=== PATIENT | male | born 1940 | race African-American/Black ===

== ENCOUNTER 2017-02-01 08:07 | Emergency (ER) | payer OTHER, MEDICARE ==
--- NOTE | 2017-02-01 08:52 | ER Document Report ---
ED GI/ - General Mode of Arrival: Ambulatory Information source: Patient TRAVEL OUTSIDE OF THE [place] IN LAST 30 DAYS: No <LUCRECIA CERRATO - Last Filed: 02/01/17 15:26> <ALEJO CARTER - Last Filed: 02/02/17 13:20> - General Chief Complaint: Urinary Problem Stated Complaint: URINARY PAIN Time Seen by Provider: 02/01/17 08:46 Notes: 76-year-old thin male hx prostate cancer complaining of suprapubic discomfort, penile dysuria, hesitancy, frequency and voiding small amounts since yesterday. He has intermittent hematuria since a bladder lesion was biopsied December 12 at [facility] surgery. He or his son do not know if it was malignant or not. He had a small bowel movement today. No fever or chills. No nausea vomiting or diarrhea. No sex in 1 year. No urethral discharge. Uncircumscised. ( LUCRECIA CERRATO) - Related Data Allergies/Adverse Reactions: No Known Allergies Allergy (Unverified 02/01/17 08:20) Home Medications: Current Home Medications Carvedilol [Carvedilol] 25 mg PO BID 02/01/17 [History] Finasteride [Finasteride] 5 mg PO DAILY 02/01/17 [History] Lisinopril [Lisinopril] 40 mg PO DAILY 02/01/17 [History] Tamsulosin HCl [Flomax] 0.4 mg PO DAILY 02/01/17 [History] Past Medical History - General Information source: Patient - Social History Smoking Status: Former Smoker Frequency of alcohol use: None Drug Abuse: None Lives with: Family Family History: Reviewed & Not Pertinent Renal/ Medical History: Denies: Hx Peritoneal Dialysis Malignancy Medical History: Reports Hx Prostate Cancer Surgical Hx: Negative - Immunizations Hx Diphtheria, Pertussis, Tetanus Vaccination: No - Unknown last tetanus <LUCRECIA CERRATO - Last Filed: 02/01/17 15:26> Review of Systems - Review of Systems Constitutional: No symptoms reported EENT: No symptoms reported Cardiovascular: No symptoms reported Respiratory: No symptoms reported Gastrointestinal: No symptoms reported Genitourinary: No symptoms reported Male Genitourinary: See HPI Musculoskeletal: No symptoms reported Skin: No symptoms reported Hematologic/Lymphatic: No symptoms reported Neurological/Psychological: No symptoms reported <LUCRECIA CERRATO - Last Filed: 02/01/17 15:26> Physical Exam - Vital signs Interpretation: Normal - General General appearance: Appears well, Alert In distress: None - HEENT Head: Normocephalic, Atraumatic Eyes: Normal Pupils: PERRL Neck: Supple. No: Lymphadenopathy - Respiratory Respiratory status: No respiratory distress Chest status: Nontender Breath sounds: Normal Chest palpation: Normal - Cardiovascular Rhythm: Regular Heart sounds: Normal auscultation Murmur: No - Abdominal Inspection: Normal Distension: No distension Bowel sounds: Normal Tenderness: Tender - Suprapubic Organomegaly: No organomegaly - Back Back: Normal, Nontender. No: CVA tenderness - Extremities General upper extremity: Normal inspection, Nontender, Normal color, Normal ROM , Normal temperature General lower extremity: Normal inspection, Nontender, Normal color, Normal ROM , Normal temperature, Normal weight bearing. No: Abdi's sign - Neurological Neuro grossly intact: Yes Cognition: Normal Orientation: AAOx4 [place] Coma Scale Eye Opening: Spontaneous [place] Coma Scale Verbal: Oriented [place] Coma Scale Motor: Obeys Commands [place] Coma Scale Total: 15 Speech: Normal Motor strength normal: LUE, RUE, LLE, RLE Sensory: Normal - Psychological Associated symptoms: Normal affect, Normal mood - Skin Skin Temperature: Warm Skin Moisture: Dry Skin Color: Normal Skin irregularity: negative: Rash <LUCRECIA CERRATO - Last Filed: 02/01/17 15:26> <ALEJO CARTER - Last Filed: 02/02/17 13:20> - Vital signs Vitals: Temp Pulse Resp BP Pulse Ox 97.7 F 70 18 126/55 H 100 02/01/17 08:17 02/01/17 08:17 02/01/17 08:17 02/01/17 08:17 02/01/17 08:17 - Genitourinary Notes: large left testicle (LUCRECIA CERRATO) Course - Laboratory Result Diagrams: 02/01/17 09:40 02/01/17 09:40 <LUCRECIA CERRATO - Last Filed: 02/01/17 15:26> - Laboratory Result Diagrams: 02/01/17 09:40 02/01/17 09:40 <ALEJO CARTER - Last Filed: 02/02/17 13:20> - Re-evaluation Re-evalutation: 02/01/17 11:14 Patient states that the burning has decreased since the Pyridium has kicked in. Pending bladder scan. Urinalysis shows greater than 182 RBCs and WBCs, negative nitrite, urine culture is pending. I have treated him with a dose of Cipro here in the emergency department. 02/01/17 11:35 bladder scan post void is 317 ml, sking pt if he wants a greene placed. 02/01/17 12:08 Pain is completely gone, is smiling and does not want a Greene. (LUCRECIA CERRATO) - Vital Signs Vital signs: Temp Pulse Resp BP Pulse Ox 97.7 F 75 18 124/78 96 02/01/17 08:17 02/01/17 12:32 02/01/17 12:32 02/01/17 12:32 02/01/17 12:32 - Laboratory Laboratory results interpreted by me: 02/01/17 02/01/17 02/01/17 08:50 09:40 09:40 RBC 3.23 L Hgb 10.3 L Hct 30.6 L RDW 14.4 H APTT 37.6 H Carbon Dioxide BUN Urine Protein 100 H Urine Blood LARGE H Ur Leukocyte Esterase LARGE H 02/01/17 09:40 RBC Hgb Hct RDW APTT Carbon Dioxide 21 L BUN 27 H Urine Protein Urine Blood Ur Leukocyte Esterase Discharge <LUCRECIA CERRATO - Last Filed: 02/01/17 15:26> <ALEJO CARTER - Last Filed: 02/02/17 13:20> - Discharge Clinical Impression: chronic, intermittent hematuria Urinary tract infection Qualifiers: Urinary tract infection type: acute cystitis Hematuria presence: with hematuria Qualified Code(s): N30.01 - Acute cystitis with hematuria Condition: Good Disposition: HOME, SELF-CARE Instructions: Ciprofloxacin ([facility]), Urinary Anesthetic Agent ([facility]), Urinary Tract Infection ([facility]) Additional Instructions: urine culture pending take the pyridium which takes the urinary pain away drink plenty of water daily Call your urologist on Friday to be seen this week line return to the emergency room if your symptoms worsen Please complete the patient satisfaction survey if you get one, and return it.. If you do not receive a survey, then you can go to the [facility] website, [email or web address] and place your comments about your very good care. Thank you very much. It was a pleasure being your medical provider today. Prescriptions: Ciprofloxacin HCl [Cipro 500 mg Tablet] 500 mg PO BID #14 tablet Phenazopyridine HCl [Pyridium 100 Mg Tablet] 100 mg PO TIDP PRN #10 tablet PRN Reason:
--- NOTE | 2017-02-01 09:42 | RADIOLOGY REPORT (SQ) ---
EXAM DESCRIPTION: ACUTE ABDOMEN SERIES COMPLETED DATE/TIME: 02/01/2017 9:25 am REASON FOR STUDY: urinary retnetion, constipation COMPARISON: None. NUMBER OF VIEWS: Three views. TECHNIQUE: Frontal chest, supine abdomen and upright/decubitus abdomen radiographic images acquired. LIMITATIONS: None. FINDINGS: CHEST: Lungs clear of infiltrates. FREE AIR: None. No abnormal gas collections. BOWEL GAS PATTERN: Nonobstructive pattern. No dilated loops or air fluid levels. CALCIFICATIONS: No suspicious calcifications. HARDWARE: None in the abdomen. SOFT TISSUES: No gross mass or suggestion of organomegaly. BONES: No acute fracture. No worrisome bone lesions. OTHER: Left-sided pacemaker. Clips overlying right groin. IMPRESSION: NO RADIOGRAPHIC EVIDENCE FOR ACUTE ABDOMINAL DISEASE. TECHNICAL DOCUMENTATION: JOB ID: [id number] [employer]- All Rights Reserved
[2017-02-01 10:01] LABS: APPEARANCE,URINE CLOUDY; BILIRUBIN,URINE NEGATIVE (NEGATIVE); GLUCOSE, URINE NEGATIVE (NEGATIVE); KETONES,URINE NEGATIVE (NEGATIVE); LEUKOCYTE ESTERASE,URINE LARGE (NEGATIVE); NITRITE,URINE NEGATIVE (NEGATIVE); PROTEIN,URINE 100 mg/dL (NEGATIVE); URINE SPECIFIC GRAVITY 1.012; UROBILINOGEN,URINE NEGATIVE mg/dL (<2.0)
[2017-02-01] MEDS ORDERED: PHENAZOPYRIDINE HCL 100 MG TABLET PO ONE (10:01)
[2017-02-01] MEDS ORDERED: ONDANSETRON 4 MG TAB.RAPDIS PO ONE (10:01)
[2017-02-01] MEDS ORDERED: CIPROFLOXACIN HCL 500 MG TABLET PO ONE (10:03)
[2017-02-01 10:09] LABS: ABSOLUTE EOSINOPHILS # (AUTO) 0.1 10^3/uL (0.0-0.6); ABSOLUTE LYMPHOCYTES (AUTO) 1.1 10^3/uL (0.5-4.7); ABSOLUTE MONOCYTES (AUTO) 0.5 10^3/uL (0.1-1.4); ABSOLUTE NEUT (AUTO) 3.1 10^3/uL (1.7-8.2); BASOPHILS % (AUTO) 0.5 % (0-2); EOSINOPHILS % (AUTO) 1.7 % (0-6); HEMATOCRIT 30.6 % (37.9-51.0); HEMOGLOBIN 10.3 g/dL (13.5-17.0); HGB HCT DIFFERENCE 0.3; LYMPHOCYTES % (AUTO) 22.7 % (13-45); MEAN CORPUSCULAR HGB CONC 33.7 g/dL (32.0-36.0); MEAN CORPUSCULAR VOLUME 95 fl (80-97); MONOCYTES % (AUTO) 10.4 % (3-13); RED BLOOD COUNT 3.23 10^6/uL (4.35-5.55); RED CELL DISTRIBUTION WIDTH 14.4 % (11.5-14.0); SEGMENTED NEUTROPHILS % (AUTO) 64.7 % (42-78); WHITE BLOOD COUNT 4.7 10^3/uL (4.0-10.5)
[2017-02-01 10:16] LABS: PROTHROMBIN TIME 13.7 SEC (11.4-15.4)
[2017-02-01 10:17] LABS: PARTIAL THROMBOPLASTIN TIME 37.6 SEC (23.5-35.8)
[2017-02-01 10:21] LABS: ALANINE AMINOTRANSFERASE 28 U/L (21-72); ALBUMIN 3.8 g/dL (3.5-5.0); ALKALINE PHOSPHATASE 90 U/L (38-126); ANION GAP 13 (5-19); ASPARTATE AMINO TRANSFERASE 18 U/L (17-59); BILIRUBIN,DIRECT 0.4 mg/dL (0.0-0.4); BILIRUBIN,TOTAL 0.6 mg/dL (0.2-1.3); BLOOD UREA NITROGEN 27 mg/dL (7-20); CALCIUM 9.2 mg/dL (8.4-10.2); CARBON DIOXIDE 21 mmol/L (22-30); CHLORIDE 105 mmol/L (98-107); CREATININE RESULT 1.05 mg/dL (0.52-1.25); GLUCOSE 108 mg/dL (75-110); POTASSIUM 4.8 mmol/L (3.6-5.0); SODIUM 138.8 mmol/L (137-145); TOTAL PROTEIN 7.1 g/dL (6.3-8.2)
[2017-02-01 12:33] VITALS: BP 124/78
== END 2017-02-01 12:33 | disposition home or self-care (01) ==
LOC: ER 08:07
DX: N30.01 Acute cystitis with hematuria (principal); R31.9 Hematuria, unspecified; R39.198 Other difficulties with micturition; Z79.899 Other long term (current) drug therapy; Z85.46 Personal history of malignant neoplasm of prostate; Z87.891 Personal history of nicotine dependence
CPT/HCPCS: 99284; 36415; 87086; 85025; 85610; 85730; 87088; 80053; 81001; 87186; 74022; S0119; J3490

== ENCOUNTER 2018-10-28 07:46 | Day surgery (SDC) | payer OTHER, MEDICARE ==
[~2018-10-28 07:46] MED LIST: CHONDR SU A NA/HYALUR INTRAOC KIT (SURGICARE) ONE; EPINEPHRINE INJ/PF 1 MG/1 ML AMPULE ONE; KETOROLAC TROMETHAMINE 0.45% 4 DROP/0.4 ML DROPERETTE OD PRN; LIDOCAINE 1% INJ-PF (10 MG/ML) 30 ML SDV ONE
[2018-10-28] MEDS: CYCLOPENTOLATE 0.2%/PHENYLEPHRINE 1% OPH SOLN 2 ML OD PRN ×3 (08:30→08:50)
[2018-10-28] MEDS: TROPICAMIDE 1% OPH SOLN 3 ML OD PRN ×3 (08:30→08:50)
[2018-10-28] MEDS: BESIFLOXACIN HCL 0.6% OPH SUSP 5 ML BOTTLE OD PRN ×4 (08:30→09:22)
[2018-10-28] MEDS: TETRACAINE HCL 0.5% OPH SOLN 0.6 ML DROPERETTE OD PRN ×3 (08:31→09:02)
[2018-10-28] MEDS ORDERED: MIDAZOLAM 2 MG/2 ML INJ ONE (08:42)
[2018-10-28] MEDS: TOBRAMYCIN SULFATE/DEXAMETH OPH OINTMENT 3.5 GM ONE ×2 (09:21→09:22)
== END 2018-10-28 10:05 | disposition home or self-care (01) ==
LOC: SC 07:46
PROVIDERS: ATTEND Ophthalmology
DX: H25.11 Age-related nuclear cataract, right eye (principal); E11.9 Type 2 diabetes mellitus without complications; I10 Essential (primary) hypertension; E78.00 Pure hypercholesterolemia, unspecified; I48.91 Unspecified atrial fibrillation; Z79.899 Other long term (current) drug therapy; Z87.891 Personal history of nicotine dependence; Z85.46 Personal history of malignant neoplasm of prostate
CPT/HCPCS: 66984; V2632; J2250; J3490 ×3; J0171

== ENCOUNTER 2018-11-11 08:10 | Day surgery (SDC) | payer OTHER, MEDICARE ==
[2018-11-11] MEDS: TETRACAINE HCL 0.5% OPH SOLN 0.6 ML DROPERETTE OS PRN ×4 (07:38→08:51)
[2018-11-11] MEDS: CYCLOPENTOLATE 0.2%/PHENYLEPHRINE 1% OPH SOLN 2 ML OS PRN ×4 (07:39→08:47)
[2018-11-11] MEDS: KETOROLAC TROMETHAMINE 0.45% 4 DROP/0.4 ML DROPERETTE OS PRN ×2 (07:39→08:29)
[2018-11-11] MEDS: BESIFLOXACIN HCL 0.6% OPH SUSP 5 ML BOTTLE OS PRN ×5 (07:39→09:28)
[2018-11-11] MEDS: TROPICAMIDE 1% OPH SOLN 3 ML OS PRN ×4 (07:39→08:47)
[~2018-11-11 08:10] MED LIST changes: -KETOROLAC TROMETHAMINE 0.45% 4 DROP/0.4 ML DROPERETTE OD PRN; +MIDAZOLAM 2 MG/2 ML INJ ONE
[2018-11-11] MEDS ORDERED: FENTANYL CITRATE INJ/PF 100 MCG/2 ML AMPUL ONE (09:00)
[2018-11-11] MEDS: TOBRAMYCIN SULFATE/DEXAMETH OPH OINTMENT 3.5 GM ONE ×2 (09:04→09:28)
== END 2018-11-11 10:20 | disposition home or self-care (01) ==
LOC: SC 08:10
PROVIDERS: ATTEND Ophthalmology
DX: H25.12 Age-related nuclear cataract, left eye (principal); Z98.41 Cataract extraction status, right eye; E11.9 Type 2 diabetes mellitus without complications; I10 Essential (primary) hypertension; E78.00 Pure hypercholesterolemia, unspecified; I48.91 Unspecified atrial fibrillation; Z95.0 Presence of cardiac pacemaker; Z79.899 Other long term (current) drug therapy; Z87.891 Personal history of nicotine dependence; Z85.46 Personal history of malignant neoplasm of prostate
CPT/HCPCS: 66984; V2632; J2250; J3490 ×3; J0171; J3010